=== PATIENT | female | born 1965 | race Caucasian/White ===

== ENCOUNTER 2017-07-01 19:23 | Emergency (ER) | payer SELFPAY ==
[2017-07-01 21:07] LABS: BASOPHIL % 0.6 % (0-2); PLATELET COUNT 222 x10^3mcL (130-400); RED CELL DISTRIBUTION WIDTH 13.7 % (11.5-14.5)
[2017-07-01 21:25] LABS: CARBON DIOXIDE 26.7 mmol/L (21-32); CHLORIDE SERUM 106 mmol/L (98-107); CREATININE SERUM 0.7 mg/dL (0.6-1.0); GFR1 > 60 mL/min; GLUCOSE SERUM 104 mg/dL (74-106); POTASSIUM SERUM 3.5 mmol/L (3.5-5.1); SODIUM SERUM 138 mmol/L (136-145)
[2017-07-01 21:30] LABS: ALBUMIN 4.1 g/dL (3.4-5.0); ALKALINE PHOSPHATASE 94 U/L (46-116); ALT/SGPT 28 U/L (14-59); AST/SGOT 20 U/L (15-37); BILIRUBIN TOTAL 0.21 mg/dL (0.20-1.00); TOTAL PROTEIN, SERUM 7.3 g/dL (6.4-8.2)
[2017-07-01 21:53] LABS: CK-MB 1.8 ng/mL (0-3.6)
[2017-07-02 01:02] VITALS: BP 120/73
== END 2017-07-02 01:02 | disposition home or self-care (01) ==
LOC: ED 19:23
PROVIDERS: Emergency Medicine
DX: R07.9 Chest pain, unspecified (principal); R06.02 Shortness of breath; M25.512 Pain in left shoulder; I10 Essential (primary) hypertension; R20.2 Paresthesia of skin; Z88.6 Allergy status to analgesic agent
CPT/HCPCS: 83880; J2270; J2405; J7030